=== PATIENT | male | born 1945 | race Caucasian/White ===

== ENCOUNTER → 2016-10-16 | Outpatient (CLI) | payer MEDICARE, OTHER | END | disposition home or self-care (01) | LOC: PCVCIMAG 15:06 | PROVIDERS: ATTEND Internal Medicine Cardiovascular Disease | DX: I25.10 Atherosclerotic heart disease of native coronary artery without angina pectoris (principal); I10 Essential (primary) hypertension; E78.00 Pure hypercholesterolemia, unspecified; Z95.5 Presence of coronary angioplasty implant and graft | CPT/HCPCS: 93325; 93351 ==

== ENCOUNTER → 2017-07-24 | Outpatient (CLI) | payer MEDICARE, OTHER | END | disposition home or self-care (01) | LOC: PCVCCLINIC 11:00 | DX: I25.10 Atherosclerotic heart disease of native coronary artery without angina pectoris (principal); I10 Essential (primary) hypertension; E78.00 Pure hypercholesterolemia, unspecified; Z95.5 Presence of coronary angioplasty implant and graft; Z87.891 Personal history of nicotine dependence; Z79.82 Long term (current) use of aspirin | CPT/HCPCS: 93005; G0463 ==

== ENCOUNTER → 2018-01-07 | Outpatient (CLI) | payer MEDICARE, OTHER ==
--- NOTE | 2018-01-07 15:10 | PCVCIMAG ---
APPROVED REPORT Study performed: 01/07/2018 13:26:34 Exam: Stress Echocardiogram Indication: CAD s/p PCI, Hypertension, Hyperlipidemia Patient Location: Echo lab Stress Nurse: Senia Nash RN Room #: 2 Status: routine Ht: 6 ft 0 in HR: 67 bpm BP: 146/86 mmHg Rhythm: NSR Medical History Medical History: CAD s/p stent, HTN, Hyperlipidemia Cardiac Risk Factors: HTN, Hyperlipidemia, FHX of CAD Previous Cardiac Procedures: PCI Pretest Chest Pain Characteristics: No chest pain Exercise History: Physically active Procedure The patient underwent an Exercise Stress Test using the Miguel Protocol. Blood pressure, heart rate, and EKG were monitored. An Echocardiogram was performed by ink technician in four stages in quad fashion. At peak stress, four selected images were obtained and placed side by side with resting images for comparison. Stress Test Details Stress Test: Exercise stress testing was performed using a Miguel protocol. HR Resting HR: 67 bpmMax Heart Rate (APMHR): 148 bpm Max HR Achieved: 166 bpmTarget HR (85% APMHR): 125 bpm % of APMHR: 112 Recovery HR: 88 bpm HR response to stress: Normal HR response to stress BP Resting BP: 146/86 mmHg Max BP: 186/82 mmHg Recovery BP: 148/84 mmHg ECG Resting ECG: Sinus Rhythm Stress ECG: Sinus Rhythm ST Change: Upsloping ST depression Arrhythmia: OCCASIONAL pac,pvc Recovery ECG: Sinus Rhythm Recovery ST Change: Non-ischemic Recovery Arrhythmia: APC Clinical Reason for Termination: Maximal effort Stress Symptoms: none Exercise duration: 11 min sec Highest Stage Achieved: Stage 4: 4.2 mph at 16% grade. Exercise capacity: 13.4 METs Overall Exercise Capacity for Age: Good Scale: Active Angina Score: None No complications. Stress ECG Conclusion The patient exercised according to the MIGUEL protocol for 11:00 mins; achieving a work level of 13.4 METS. The resting heart rate of 67 bpm marty to a maximum heart rate of 166 bpm. This value represent 112% of the maximal, age-predicted heart rate. The resting blood pressure of 146/86 mmHg, marty to a maximum blood pressure of 186/82 mmHg. The exercise test was stopped due to fatigue and dyspnea. Pre-Stress Echo The resting Echocardiogram showed normal left ventricular contractility with an estimated Ejection Fraction of about 55-60%. Normal wall motion in all segments on baseline images. Post-Stress Echo The stress Echocardiogram showed normal left ventricular contractility with an estimated Ejection Fraction of about 65-70%. Normal augmentation of wall motion in all segments on post stress images. Clinical No clinical or ECG evidence for ischemia. Conclusion Clinical Response: Non-ischemic Exercise Capacity: Superior Stress ECG Response: Non-ischemic Stress Echo Images: Non-ischemic No clinical, EKG or echocardiographic evidence for ischemia. No echocardiographic evidence for exercise induced ischemia. Normal stress echocardiogram with maximal exercise stress. <Conclusion> No clinical, EKG or echocardiographic evidence for ischemia. No echocardiographic evidence for exercise induced ischemia. Normal stress echocardiogram with maximal exercise stress.
--- NOTE | 2018-01-07 15:38 | PCVCIMAG ---
EXAM: BILATERAL CAROTID DUPLEX INDICATION: Carotid Occlusive Disease. FINDINGS: Doppler Measurements (centimeters per second): RIGHT: Peak CCA-105, Peak ECA-94, Diastolic ICA-29, Peak ICA-100, ICA/CCA Ratio-1.0. LEFT: Peak CCA-93, Peak ECA-117, Diastolic ICA-31, Peak ICA-81, ICA/CCA Ratio-0.9. RIGHT CAROTID: The carotid bulb has mild plaque. The proximal internal carotid artery shows <40% stenosis. The common carotid artery shows no significant stenosis. The external carotid artery shows no significant stenosis. LEFT CAROTID: The carotid bulb has mild plaque. The proximal internal carotid artery shows <40% stenosis. The common carotid artery shows no significant stenosis. The external carotid artery shows no significant stenosis. Antegrade flow in both vertebral arteries. IMPRESSION: <40% stenosis of the right internal carotid artery with mild plaque. <40% stenosis of the left internal carotid artery with mild plaque. LOC:[place] [id number]
== END | disposition home or self-care (01) ==
LOC: PCVCIMAG 15:35
PROVIDERS: ATTEND Internal Medicine Cardiovascular Disease
DX: I65.23 Occlusion and stenosis of bilateral carotid arteries (principal); I25.10 Atherosclerotic heart disease of native coronary artery without angina pectoris; I10 Essential (primary) hypertension; E78.5 Hyperlipidemia, unspecified; R55 Syncope and collapse
CPT/HCPCS: 93325; 93351; 93880

== ENCOUNTER → 2018-09-30 | Outpatient (CLI) | payer MEDICARE, OTHER | END | disposition home or self-care (01) | LOC: PCVCCLINIC 10:30 | PROVIDERS: ATTEND Internal Medicine Cardiovascular Disease | DX: I25.10 Atherosclerotic heart disease of native coronary artery without angina pectoris (principal); I10 Essential (primary) hypertension; E78.00 Pure hypercholesterolemia, unspecified; Z95.5 Presence of coronary angioplasty implant and graft; Z88.0 Allergy status to penicillin; Z87.891 Personal history of nicotine dependence; Z79.82 Long term (current) use of aspirin; Z79.899 Other long term (current) drug therapy | CPT/HCPCS: 36415; 80061; 93005; G0463 ==

== ENCOUNTER → 2019-03-31 | Outpatient (CLI) | payer MEDICARE, OTHER ==
--- NOTE | 2019-03-31 13:11 | PCVCIMAG ---
APPROVED REPORT Study performed: 03/31/2019 11:39:48 Exam: Stress Echocardiogram Indication: CAD , Hyperlipidemia, Hypertension Patient Location: Echo lab Stress Nurse: Nilda Tesfaye RN Room #: 2 Status: routine Ht: 6 ft 0 in HR: 66 bpm BP: 134/82 mmHg Rhythm: NSR Medical History Medical History: CAD s/p stent Procedure The patient underwent an Exercise Stress Test using the Stephane Protocol. Blood pressure, heart rate, and EKG were monitored. An Echocardiogram was performed by timber management technician in four stages in quad fashion. At peak stress, four selected images were obtained and placed side by side with resting images for comparison. Stress Test Details Stress Test: Exercise stress testing was performed using a Stephane protocol. HR Resting HR: 66 bpmMax Heart Rate (APMHR): 147 bpm Max HR Achieved: 144 bpmTarget HR (85% APMHR): 3 bpm % of APMHR: 97 Recovery HR: 87 bpm HR response to stress: Normal HR response to stress BP Resting BP: 134/82 mmHg Max BP: 164/76 mmHg Recovery BP: 122/74 mmHg BP response to stress: Normal blood pressure response to stress. ECG Resting ECG: Sinus Rhythm Stress ECG: Sinus Rhythm Arrhythmia: APC's Recovery ECG: Sinus Rhythm Clinical Reason for Termination: Maximal effort Exercise duration: 10 min 23 sec Highest Stage Achieved: Stage 4: 4.2 mph at 16% grade. Exercise capacity: 13.40 METs Overall Exercise Capacity for Age: Good Stress ECG Conclusion ECG: Non-ischemic Clinical: Non-ischemic Pre-Stress Echo The resting Echocardiogram showed normal left ventricular contractility with an estimated Ejection Fraction of about >55%. Normal wall motion in all segments on baseline images. Post-Stress Echo The stress Echocardiogram showed normal left ventricular contractility with an estimated Ejection Fraction of about 60-65%. Normal augmentation of wall motion in all segments on post stress images. Clinical No clinical or ECG evidence for ischemia. Conclusion Clinical Response: Non-ischemic Exercise Capacity: Superior Stress ECG Response: Non-ischemic Stress Echo Images: Non-ischemic No clinical, EKG or echocardiographic evidence for ischemia. Normal stress echocardiogram with maximal exercise stress. Trace mitral regurgitation, moderate pulmonary regurgitation, mild aortic and tricuspid regurgitation. Pulmonary artery pressure is 38 mmHg. Other Information Study Quality: Adequate <Conclusion> No clinical, EKG or echocardiographic evidence for ischemia. Normal stress echocardiogram with maximal exercise stress. Trace mitral regurgitation, moderate pulmonary regurgitation, mild aortic and tricuspid regurgitation. Pulmonary artery pressure is 38 mmHg.
== END | disposition home or self-care (01) ==
LOC: PCVCIMAG 11:27
PROVIDERS: ATTEND Internal Medicine Cardiovascular Disease
DX: I08.2 Rheumatic disorders of both aortic and tricuspid valves (principal); I25.10 Atherosclerotic heart disease of native coronary artery without angina pectoris; E78.00 Pure hypercholesterolemia, unspecified; E78.5 Hyperlipidemia, unspecified; I10 Essential (primary) hypertension; Z95.5 Presence of coronary angioplasty implant and graft; Z87.891 Personal history of nicotine dependence
CPT/HCPCS: 93325; 93351